=== PATIENT | female | born 1975 | race American Indian/Alaskan Native ===

== ENCOUNTER 2019-03-19 18:55 | Emergency (ER) | payer MEDICAID, OTHER ==
[2019-03-19 19:44] VITALS: BP 178/113; PULSE 85
--- NOTE | 2019-03-19 20:07 | EDM.PDOC ---
ED HPI GENERAL MEDICAL PROBLEM - General Chief Complaint: Skin Complaint Stated Complaint: POSION KAMALJIT ON FACE Time Seen by Provider: 03/19/19 19:40 Source of Information: Reports: Patient History Limitations: Reports: No Limitations - History of Present Illness INITIAL COMMENTS - FREE TEXT/NARRATIVE: 43 yo otherwise healthy presents with concerns of rash to face. Noticed yesterday while at work. Has been progressive. Pruritic. 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 Has history of severe reaction to poison kamaljit in the past. No dyspnea. No fevers. Rash localized to side of face. No pain with eye movements. 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, Endocrine/Metabolic History: Reports: Diabetes, Type II, Obesity/BMI 30+ - Past Surgical History GI Surgical History: Reports: Appendectomy, Cholecystectomy Female Surgical History: Reports: Section, Tubal Ligation Musculoskeletal Surgical History: Reports: Carpal Tunnel Social & Family History - Tobacco Use Smoking Status *Q: Former Smoker Used Tobacco, but Quit: Yes Month/Year Tobacco Last Used: 2018 - Caffeine Use Caffeine Use: Reports: Coffee, Soda - Recreational Drug Use Recreational Drug Use: No - Living Situation & Occupation Living situation: Reports: Single ED ROS GENERAL - Review of Systems Review Of Systems: See Below Constitutional: Reports: No Symptoms HEENT: Reports: No Symptoms Respiratory: Reports: No Symptoms Cardiovascular: Reports: No Symptoms Endocrine: Reports: No Symptoms GI/Abdominal: Reports: No Symptoms : Reports: No Symptoms Musculoskeletal: Reports: No Symptoms Skin: Reports: Pruritis, Rash Neurological: Reports: No Symptoms Psychiatric: Reports: No Symptoms Hematologic/Lymphatic: Reports: No Symptoms Immunologic: Reports: No Symptoms ED EXAM, SKIN/RASH Exam: See Below Exam Limited By: No Limitations General Appearance: Alert, No Apparent Distress Throat/Mouth: Normal Inspection, Normal Lips Head: Atraumatic, Normocephalic Neck: Supple, Non-Tender Respiratory/Chest: No Respiratory Distress, Lungs Clear. No: Wheezing Cardiovascular: Regular Rate, Rhythm GI/Abdominal: Normal Bowel Sounds, Soft, Non-Tender Back Exam: Normal Inspection Extremities: Normal Inspection Neurological: Alert, Oriented Psychiatric: Normal Affect Skin: Warm, Dry Location, Skin: Head, Face, Neck Characteristics: Erythematous, Other (erythema and swelling right side of face and dileep-orbital bilaterally. not vesicular. conjuctiva grossly normal.) Associated features: No: Weeping Course - Vital Signs Last Recorded V/S: Last Vital Signs Temp 36.7 C 03/19/19 19:40 Pulse 85 03/19/19 19:40 Resp 18 03/19/19 19:40 BP 178/113 H 03/19/19 19:40 Pulse Ox 100 03/19/19 19:40 - Re-Assessments/Exams Free Text/Narrative Re-Assessment/Exam: 43 yo presents with concern of rash to face. Believes she was exposed to poison kamaljit after clearing area for sweat lodge - several other people with same symptoms. Low suspicion for cellulitis. No symptoms or findings to suggest dileep-orbital infection. No systemic symptoms. Will treat with prednisone x 10 days. Instructed to follow up with physician for worsening, or rebound of symptoms after completing steroids to discuss taper. 03/19/19 20:05 Departure - Departure Time of Disposition: 02:07 Disposition: Home, Self-Care 01 Condition: Good Clinical Impression: Poison kamaljit dermatitis - Discharge Information Instructions: Poison Kamaljit Dermatitis Referrals: Mireille Coelho I [employer] WORK[employer] [Primary Care Provider] - Additional Instructions: Please complete the prescribed steroids. See a physician for worsening symptoms or rebound in symptoms after steroids stop as discussed. If you develop fevers, pain with eye movements, or significant change in severity of symptoms please be seen again by a physician as these may be signs of infection. You can use over the counter medications such as benadryl for itching as discussed.
== END 2019-03-19 20:13 | disposition home or self-care (01) ==
LOC: JP.ED 18:55
DX: L23.7 Allergic contact dermatitis due to plants, except food (principal); E11.9 Type 2 diabetes mellitus without complications; E66.9 Obesity, unspecified; I10 Essential (primary) hypertension; Z90.49 Acquired absence of other specified parts of digestive tract; Z98.51 Tubal ligation status; Z88.5 Allergy status to narcotic agent; Z88.8 Allergy status to other drugs, medicaments and biological substances; Z87.891 Personal history of nicotine dependence
CPT/HCPCS: 99282; 99283

== ENCOUNTER 2020-02-06 10:33 | Emergency (ER) | payer MEDICAID ==
[2020-02-06 10:41] VITALS: PULSE 82
[2020-02-06] MEDS ORDERED: Morphine 4 MG/ML Syringe IVPUSH PRN (10:52)
[2020-02-06] MEDS ORDERED: Aspirin 81 MG Tab.Chew PO ONE (10:52)
[2020-02-06] MEDS ORDERED: Sodium Chloride 0.9% 10 ML Syringe FLUSH PRN (10:52)
--- NOTE | 2020-02-06 10:56 | EDM.PDOC ---
ED HPI GENERAL MEDICAL PROBLEM - General Chief Complaint: Chest Pain Stated Complaint: CHEST PAINS Time Seen by Provider: 02/06/20 10:38 Source of Information: Reports: Patient, Old Records, RN Notes Reviewed History Limitations: Reports: Intoxication - History of Present Illness INITIAL COMMENTS - FREE TEXT/NARRATIVE: 24-year-old female presents emergency department a complaint of chest pain, she states it started about 5 hours ago pain is very intense 8 out of 10 no nausea she does feel short of breath no diaphoresis she does not smoke cigarettes has no cardiac history. She denies any recent strenuous activity Chest Pain Score (Numeric/FACES): 8 - Related Data Allergies Allergy/AdvReac Type Severity Reaction Status Date / Time codeine Allergy Rash Verified 03/19/19 19:35 nifedipine Allergy Redness Verified 03/19/19 19:35 tramadol Allergy Cannot Verified 03/19/19 19:35 Remember Home Meds: Home Meds Propranolol HCl 1 tab PO BID 03/19/19 [History] diphenhydrAMINE HCL [Banophen] 1 tab PO TID 03/19/19 [History] Mavyret 3 tab PO BEDTIME 02/06/20 [History] Past Medical History Cardiovascular History: Reports: Hypertension Gastrointestinal History: Reports: Cholelithiasis, 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, Endocrine/Metabolic History: Reports: Diabetes, Type II, Obesity/BMI 30+ - Infectious Disease History Infectious Disease History: Reports: Hepatitis C - Past Surgical History GI Surgical History: Reports: Appendectomy, Cholecystectomy Female Surgical History: Reports: Section, Tubal Ligation Musculoskeletal Surgical History: Reports: Carpal Tunnel Social & Family History - Tobacco Use Smoking Status *Q: Never Smoker - Caffeine Use Caffeine Use: Reports: Coffee, Energy Drinks, Soda - Recreational Drug Use Recreational Drug Use: No - Living Situation & Occupation Living situation: Reports: Single ED ROS GENERAL - Review of Systems Review Of Systems: See Below Constitutional: Reports: No Symptoms HEENT: Reports: No Symptoms Respiratory: Reports: Shortness of Breath Cardiovascular: Reports: Chest Pain GI/Abdominal: Reports: No Symptoms : Reports: No Symptoms Skin: Reports: No Symptoms ED EXAM, GENERAL - Physical Exam Exam: See Below Exam Limited By: No Limitations General Appearance: Alert, Mild Distress Respiratory/Chest: No Respiratory Distress, Lungs Clear, Normal Breath Sounds, No Accessory Muscle Use, Chest Non-Tender Cardiovascular: Regular Rate, Rhythm, No Murmur GI/Abdominal: Soft, Non-Tender Extremities: Normal Inspection, No Pedal Edema Course - Vital Signs Last Recorded V/S: Last Vital Signs Temp 98.6 F 02/06/20 10:40 Pulse 82 02/06/20 10:40 Resp 16 02/06/20 10:40 BP 155/103 H 02/06/20 11:06 Pulse Ox 99 02/06/20 10:40 - Orders/Labs/Meds Orders: Active Orders 24 hr Category Date Time Status Cardiac Monitoring [RC] .As Directed Care 02/06/20 10:52 Active EKG Documentation Completion [RC] ASDIRECTED Care 02/06/20 10:53 Active Peripheral IV Care [RC] . DIRECTED Care 02/06/20 10:53 Active Morphine Med 02/06/20 10:52 Active 4 mg IVPUSH Q10M PRN Nitroglycerin [Nitrostat] Med 02/06/20 10:52 Active 0.4 mg SL Q5M PRN Sodium Chloride 0.9% [Saline Flush] Med 02/06/20 10:52 Active 10 ml FLUSH ASDIRECTED PRN Peripheral IV Insertion Adult [OM.PC] Stat Oth 02/06/20 10:52 Ordered Saline Lock Insert [OM.PC] Stat Oth 02/06/20 10:52 Ordered EKG 12 Lead [EK] Stat Ther 02/06/20 10:53 Ordered Medication Orders Morphine Sulfate (Morphine) 4 mg IVPUSH Q10M PRN PRN Reason: Chest Pain Stop: 02/07/20 10:53 Nitroglycerin (Nitrostat) 0.4 mg SL Q5M PRN PRN Reason: Chest Pain Stop: 02/07/20 10:53 Last Admin: 02/06/20 11:06 Dose: 0.4 mg Documented by: [id number] Admin: 02/06/20 11:01 Dose: 0.4 mg Documented by: [id number] Sodium Chloride (Saline Flush) 10 ml FLUSH ASDIRECTED PRN PRN Reason: Keep Vein Open Last Admin: 02/06/20 11:00 Dose: 10 ml Documented by: [id number] Labs: Laboratory Tests 02/06/20 02/06/20 02/06/20 Range/Units 11:01 11:01 13:00 WBC 6.3 (4.5-11.0) K/uL RBC 4.41 (3.30-5.50) M/uL Hgb 12.9 (12.0-15.0) g/dL Hct 38.5 (36.0-48.0) % MCV 87 (80-98) fL MCH 29 (27-31) pg MCHC 34 (32-36) % Plt Count 273 (150-400) K/uL Neut % (Auto) 75 H (36-66) % Lymph % (Auto) 17 L (24-44) % [place] % (Auto) 6 (2-6) % Eos % (Auto) 1 L (2-4) % Baso % (Auto) 0 (0-1) % Sodium 139 L (140-148) mmol/L Potassium 3.7 (3.6-5.2) mmol/L Chloride 104 (100-108) mmol/L Carbon Dioxide 23 (21-32) mmol/L Anion Gap 15.7 H (5.0-14.0) mmol/L BUN 12 (7-18) mg/dL Creatinine 0.9 (0.6-1.0) mg/dL Est Cr Clr Drug Dosing 66.67 mL/min Estimated GFR (MDRD) > 60 (>60) Glucose 120 H (74-106) mg/dL Calcium 8.1 L (8.5-10.1) mg/dL Total Bilirubin 0.4 (0.2-1.0) mg/dL AST 21 (15-37) U/L ALT 36 (12-78) U/L Alkaline Phosphatase 84 (46-116) U/L Troponin I < 0.017 < 0.017 (0.000-0.056) ng/mL Total Protein 7.4 (6.4-8.2) g/dL Albumin 3.4 (3.4-5.0) g/dL Globulin 4.0 H (2.3-3.5) g/dL Albumin/Globulin Ratio 0.9 L (1.2-2.2) Meds: Medications Generic Name Dose Route Start Last Admin Trade Name Freq PRN Reason Stop Dose Admin Morphine Sulfate 4 mg 02/06/20 10:52 Morphine IVPUSH 02/07/20 10:53 Q10M PRN Chest Pain Nitroglycerin 0.4 mg 02/06/20 10:52 02/06/20 11:06 Nitrostat SL 02/07/20 10:53 0.4 mg Q5M PRN Administration Chest Pain Sodium Chloride 10 ml 02/06/20 10:52 02/06/20 11:00 Saline Flush FLUSH 10 ml ASDIRECTED PRN Administration Keep Vein Open Discontinued Medications Generic Name Dose Route Start Last Admin Trade Name Freq PRN Reason Stop Dose Admin Aspirin 324 mg 02/06/20 10:52 02/06/20 11:00 Aspirin PO 02/06/20 10:53 324 mg ONETIME ONE Administration Lorazepam 1 mg 02/06/20 11:09 02/06/20 11:12 Ativan IVPUSH 02/06/20 11:10 1 mg ONETIME ONE Administration Departure - Departure Time of Disposition: 13:43 Disposition: Home, Self-Care 01 Condition: Fair Clinical Impression: Chest pain Qualifiers: Chest pain type: unspecified Qualified Code(s): R07.9 - Chest pain, unspecified Instructions: Pain Without a Known Cause Referrals: PCP,None [Primary Care Provider] - Forms: ED Department Discharge Additional Instructions: Please follow-up with your primary care this week for further evaluation discussed the possibility of a stress test in the future, call return to the emergency department worsening of symptoms Sepsis Event Note (ED) - Evaluation Sepsis Screening Result: No Definite Risk - Focused Exam Vital Signs: Vital Signs Temp Pulse Resp BP BP Pulse Ox 02/06/20 11:06 155/103 H 02/06/20 11:01 174/118 H 02/06/20 10:40 98.6 F 82 16 174/118 H 99 - My Orders Last 24 Hours: My Active Orders 02/06/20 10:52 Cardiac Monitoring [RC] .As Directed Morphine 4 mg IVPUSH Q10M PRN Nitroglycerin [Nitrostat] 0.4 mg SL Q5M PRN Sodium Chloride 0.9% [Saline Flush] 10 ml FLUSH ASDIRECTED PRN Peripheral IV Insertion Adult [OM.PC] Stat Saline Lock Insert [OM.PC] Stat 02/06/20 10:53 EKG Documentation Completion [RC] ASDIRECTED Peripheral IV Care [RC] . DIRECTED EKG 12 Lead [EK] Stat - Assessment/Plan Last 24 Hours: My Active Orders 02/06/20 10:52 Cardiac Monitoring [RC] .As Directed Morphine 4 mg IVPUSH Q10M PRN Nitroglycerin [Nitrostat] 0.4 mg SL Q5M PRN Sodium Chloride 0.9% [Saline Flush] 10 ml FLUSH ASDIRECTED PRN Peripheral IV Insertion Adult [OM.PC] Stat Saline Lock Insert [OM.PC] Stat 02/06/20 10:53 EKG Documentation Completion [RC] ASDIRECTED Peripheral IV Care [RC] . DIRECTED EKG 12 Lead [EK] Stat Plan: Assessment Acuity = acute Site and laterality = chest pain Etiology = unknown Manifestations = none Location of injury = Home Lab values = CBC, CMP troponin negative x2 EKG does show left ventricular hypertrophy no ST elevation or depression chest x-ray shows no acute process Plan Chest pain unknown etiology did recommend stress test use, follow-up with her primary care this week for further evaluation, chest pain-free at this time improved after Ativan This note was dictated using [employer] voice recognition software please call with any questions on syntax or grammar.
[2020-02-06] MEDS: Nitroglycerin 0.4 MG Tab.SL SL PRN ×2 (11:01→11:06)
[2020-02-06 11:07] VITALS: BP 155/103
[2020-02-06] MEDS ORDERED: LORazepam 2 MG/ML SDV IVPUSH ONE (11:09)
--- NOTE | 2020-02-06 12:11 | CR ---
CHEST: Portable 02/06/2020 at 1121 CLINICAL HISTORY:Chest pain COMPARISON:None FINDINGS: The heart size, pulmonary vascularity and hilar structures are normal. No infiltrate effusion or pneumothorax is seen. There is a tiny surgical clip or staple overlying the left chest IMPRESSION: No acute cardiopulmonary process.
== END 2020-02-06 14:00 | disposition home or self-care (01) ==
LOC: JP.ED 10:33
DX: R07.9 Chest pain, unspecified (principal); I10 Essential (primary) hypertension; E11.9 Type 2 diabetes mellitus without complications; E66.9 Obesity, unspecified; Z68.39 Body mass index [BMI] 39.0-39.9, adult; Z98.890 Other specified postprocedural states; Z88.5 Allergy status to narcotic agent; Z88.8 Allergy status to other drugs, medicaments and biological substances; Z79.899 Other long term (current) drug therapy
CPT/HCPCS: 36415; 71045; 80053; 84484; 85025; 93005; 96374; 99285; A9270; J2060

== ENCOUNTER 2022-04-06 18:48 | Emergency (ER) | payer MEDICAID ==
[2022-04-06 18:58] VITALS: BP 156/107; PULSE 86
[2022-04-06] MEDS ORDERED: Ibuprofen 400 MG Tab PO ONE (19:18)
== END 2022-04-06 19:58 | disposition home or self-care (01) ==
LOC: JP.ED 18:48
DX: M94.0 Chondrocostal junction syndrome [Tietze] (principal); R09.1 Pleurisy; I10 Essential (primary) hypertension; K21.9 Gastro-esophageal reflux disease without esophagitis; E66.9 Obesity, unspecified; F17.210 Nicotine dependence, cigarettes, uncomplicated; Z68.41 Body mass index [BMI] 40.0-44.9, adult; Z88.5 Allergy status to narcotic agent; Z88.8 Allergy status to other drugs, medicaments and biological substances
CPT/HCPCS: 71046; 99284; A9270

== ENCOUNTER 2022-11-09 20:36 | Emergency (ER) | payer MEDICAID ==
[2022-11-09 20:57] VITALS: BP 174/102; PULSE 81
[2022-11-09] MEDS ORDERED: cefTRIAXone 1 GM Vial IM ONE (21:14)
[2022-11-09] MEDS ORDERED: Acetaminophen/HYDROcodone 325-5 MG Tab PO ONE (21:15)
[2022-11-09] MEDS ORDERED: metroNIDAZOLE 250 MG Tab PO ONE (21:15)
[2022-11-09] MEDS ORDERED: Lidocaine 1% 5 ML VIAL ONE (21:30)
[2022-11-09] MEDS ORDERED: Lidocaine 1% 5 ML VIAL INJECT ONE (21:37)
== END 2022-11-09 21:50 | disposition home or self-care (01) ==
LOC: JP.ED 20:36
DX: K04.7 Periapical abscess without sinus (principal); K02.9 Dental caries, unspecified; I10 Essential (primary) hypertension; E66.9 Obesity, unspecified; Z88.5 Allergy status to narcotic agent; Z88.8 Allergy status to other drugs, medicaments and biological substances; Z72.0 Tobacco use; Z68.41 Body mass index [BMI] 40.0-44.9, adult
CPT/HCPCS: 96372; 99282; A9270; J0696

== ENCOUNTER 2023-12-08 10:11 | Emergency (ER) | payer MEDICAID ==
[2023-12-08 10:25] VITALS: BP 128/89; PULSE 84
[2023-12-08 10:53] LABS: BASOPHILS PERCENT AUTO 0.6 % (0.1-1.3); EOSINOPHILS ABSOLUTE AUTO 0.04 K/uL (0.00-0.40); EOSINOPHILS PERCENT AUTO 1.3 % (0.0-5.4); HEMATOCRIT 36.4 % (34.3-46.0); HEMOGLOBIN 12.3 g/dL (11.2-15.5); IMMATURE GRAN PERCENT AUTO 0.3 % (0.0-0.7); LYMPHOCYTES ABSOLUTE AUTO 1.38 K/uL (0.8-3.3); LYMPHOCYTES PERCENT AUTO 44.8 % (11.4-47.7); MEAN CORPUSCULAR HEMOGLOBIN 29.3 pg (31.6-35.5); MEAN CORPUSCULAR HGB CONC 33.8 g/dL (31.6-35.5); MEAN CORPUSCULAR VOLUME 86.7 fL (81.4-99.0); MONOCYTES ABSOLUTE AUTO 0.33 K/uL (0.20-0.90); MONOCYTES PERCENT AUTO 10.7 % (3.3-12.6); NEUTROPHILS PERCENT AUTO 42.3 % (40.0-78.1); PLATELET COUNT,PLT 179 K/uL (130-375); WHITE BLOOD CELL COUNT,WBC 3.1 K/uL (3.2-11.0)
[2023-12-08 11:07] LABS: BASOPHILS ABSOLUTE AUTO 0.02 K/uL (0.00-0.10); IMMATURE GRAN ABSOLUTE AUTO 0.01 K/uL (0.00-0.23)
[2023-12-08 11:18] LABS: CALCIUM 8.8 mg/dL (8.5-10.1); CREATININE 0.8 mg/dL (0.6-1.0); EST CRCL DRUG DOSING (CG) 71.91 mL/min; POTASSIUM,K 3.1 mmol/L (3.6-5.2)
[2023-12-08 11:21] LABS: ANION GAP 13.1 mmol/L (5.0-14.0)
== END 2023-12-08 12:54 | disposition home or self-care (01) ==
LOC: JP.ED 10:11
DX: J98.11 Atelectasis (principal); I10 Essential (primary) hypertension; E66.9 Obesity, unspecified; Z88.5 Allergy status to narcotic agent; Z88.8 Allergy status to other drugs, medicaments and biological substances; Z79.899 Other long term (current) drug therapy; Z86.19 Personal history of other infectious and parasitic diseases; Z87.891 Personal history of nicotine dependence; Z68.38 Body mass index [BMI] 38.0-38.9, adult
CPT/HCPCS: 36415; 71045; 71045-26; 80048; 84484; 85025; 85379; 86140; 93005; 93010; 99283; 99285

== ENCOUNTER 2024-01-18 10:16 | Emergency (ER) | payer OTHER, MEDICAID ==
[2024-01-18] MEDS: Acetaminophen 500 MG Tab PO ONE (11:03)
[2024-01-18] MEDS: Ketorolac 30 MG/ML SDV IM ONE (11:58)
[2024-01-18 12:21] LABS: CREATININE 0.8 mg/dL (0.6-1.0); EST CRCL DRUG DOSING (CG) 71.91 mL/min; POTASSIUM,K 3.4 mmol/L (3.6-5.2)
[2024-01-18 12:24] LABS: ANION GAP 11.4 mmol/L (5.0-14.0)
[2024-01-18 12:31] VITALS: BP 140/87; PULSE 68
== END 2024-01-18 12:47 | disposition home or self-care (01) ==
LOC: JP.ED 10:16
DX: S13.4XXA Sprain of ligaments of cervical spine, initial encounter (principal); M79.662 Pain in left lower leg; Z88.5 Allergy status to narcotic agent; Z88.8 Allergy status to other drugs, medicaments and biological substances; Z79.51 Long term (current) use of inhaled steroids; Z79.899 Other long term (current) drug therapy; V49.49XA Driver injured in collision with other motor vehicles in traffic accident, initial encounter; Y93.89 Activity, other specified
CPT/HCPCS: 36415; 73590; 73610; 80048; 82550; 96372; 99284; A9270; J1885; 99283